=== PATIENT | female | born 1985 | race Caucasian/White ===

== ENCOUNTER 2019-01-15 20:10 | Emergency (ER) | payer MEDICARE, MEDICAID ==
[~2019-01-15] VITALS: Ht 167.6 cm; Wt 63.5 kg
[2019-01-15] MEDS ORDERED: HYDROcodone-ACET 5/325MG TAB PO ONE (23:00)
[2019-01-16] MEDS ORDERED: IBUPROFEN 600 MG TAB PO ONE (06:15)
[2019-01-16 07:05] LABS: Basophils # (auto) 0.1 uL; Basophils % (auto) 0.6 % (0.0-2.0); Eosinophils # (auto) 0.5 uL; Eosinophils % (auto) 3.2 % (0.0-7.0); Hematocrit 39.5 % (36.0-46.0); Hemoglobin 13.5 g/dL (12.2-16.2); Lymphocytes # (auto) 2.7 uL; Lymphocytes % (auto) 18.4 % (10.0-50.0); Mean Corpuscular Hemoglobin 29.6 pg (28.0-32.0); Mean Corpuscular Hgb Conc. 34.1 g/dL (32.0-36.0); Mean Corpuscular Volume 86.8 fL (80.0-100.0); Monocytes # (auto) 0.8 uL; Monocytes % (auto) 5.2 % (0.0-12.0); Neutrophils # (auto) 10.7 uL; Neutrophils % (auto) 72.6 % (37.0-80.0); Platelet Count (auto) 250 10^3/uL (140-450); Red Blood Cells 4.55 10^6/uL (4.0-5.20); White Blood Cell 14.8 10^3/uL (4.4-10.8)
[2019-01-16 07:29] LABS: Partial Thromboplastin Time 29.3 sec (23.64-32.05)
[2019-01-16 07:36] LABS: Albumin 3.6 g/dL (3.4-5.0); BUN/Creatinine Ratio 20.3; Calcium 8.7 mg/dL (8.5-10.1); Magnesium 2.5 mg/dL (1.6-2.6); Potassium 3.8 mmol/L (3.5-5.1)
[2019-01-16 07:38] LABS: Bilirubin, Total 0.7 mg/dL (0.2-1.0); Total Protein 7.2 g/dL (6.4-8.2)
[2019-01-16] MEDS ORDERED: SODIUM CHLORIDE 0.9% 1,000 ML IV ONE ×2 (07:44)
[2019-01-16] MEDS ORDERED: methylPREDNISolone SOD SUCC 125 MG/2 ML VL IV ONE (07:45)
[2019-01-16 08:30] VITALS: BP 99/64
== END 2019-01-16 09:58 | disposition home or self-care (01) ==
LOC: EDBD 20:10 → ER 20:16
DX: G35 Multiple sclerosis (principal)
CPT/HCPCS: 36415; 80053; 83735; 83880; 85025; 85610; 85730; 94761; 96374; 99283; J2930; J7030